=== PATIENT | male | born 1970 | race Caucasian/White ===

== ENCOUNTER 2016-12-13 12:32 | Inpatient (IN) | payer OTHER ==
[~2016-12-13] VITALS: Ht 167.6 cm; Wt 71.7 kg
[2016-12-13] VITALS (7 sets, daily range): BP systolic 120–152; BP diastolic 75–92; PULSE 60–74; RESP 17–18; Ht 167.6 cm; Wt 71.7 kg
[2016-12-13] MEDS ORDERED: morphine 10 MG INJ IM PRN (13:00)
[2016-12-13] MEDS ORDERED: ONDANSETRON 4 MG INJ IV PRN ×2 (13:00→16:00)
[2016-12-13] MEDS ORDERED: IBUPROFEN 400 MG TAB PO PRN ×2 (13:00→18:00)
[2016-12-13] MEDS ORDERED: morphine 2 MG INJ ONE (13:18)
[2016-12-13] MEDS: MECLIZINE 25 MG TAB PO PRN (14:15)
[2016-12-13] MEDS: IBUPROFEN 400 MG TAB PO PRN (15:45)
[2016-12-13] MEDS ORDERED: morphine 2 MG INJ IV PRN (16:00)
[2016-12-13] MEDS ORDERED: HYDROCODONE/APAP (5/325) TAB PO ONE (16:00)
[2016-12-13] MEDS ORDERED: DOCUSATE SODIUM 100 MG CAP PO PRN (16:00)
[2016-12-13] MEDS ORDERED: NACL 0.9% 3 ML SYG IV SCH (16:00)
[2016-12-13] MEDS ORDERED: GLUCAGON 1 MG INJ IM PRN (16:30)
[2016-12-13] MEDS ORDERED: GLUCOSE GEL 15 GRAM TUBE PO PRN ×2 (16:30)
[2016-12-13] MEDS ORDERED: GLUCOSE GEL 15 GRAM TUBE BUCCAL PRN (16:30)
[2016-12-13] MEDS ORDERED: DEXTROSE 50% 50 ML SYRINGE IV PRN ×2 (16:30)
[2016-12-13 16:39] LABS: CREATINE KINASE 136 IU/L (23-200)
[2016-12-13 16:55] LABS: CK-MB 1.11 ng/ml (0.0-2.4); TROPONIN-I < 0.012 ng/ml (0.00-0.12)
[2016-12-13] MEDS: SOD CHLORIDE 0.45% 1,000 ML IV SCH (17:02)
--- NOTE | 2016-12-13 17:09 | HP ---
DATE OF ADMISSION: 12/13/2016 [employer] MACHINE: Neurology. CHIEF COMPLAINT: Lightheadedness and dizziness. 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 He used to take melatonin 5 mg daily during the day for sleeping, which was not helping h im, so he increased the dose to 10 mg. Yesterday on 12/12/2016, patient started having lightheadedne ss and dizziness and severe vertigo accompanied with nausea and 1 episode of vomiting. The patient was taken to [facility], where he had a CT angiogram of head and neck, which the findings showed no acute infarct, hemorrhage, mass or intra-axial fluid collection, mild bilater al inferior maxillary sinus mucosal thickening, unremarkable CT angiogram of the head. Metallic art ifact and motion artifact obscured the proximal ICA bilaterally but especially on the right which luna s retropharyngeal course and has appearance of proximal mid right ICA narrowing, and followup is sug gested. The patient was treated with lorazepam, meclizine. His urine drug screen was found to be n egative, although his glucose was found to be 347. The patient denies having any history of diabete s mellitus. His family history of diabetes is unknown. The patient's vital signs were found to be temperature 36.4, pulse 58, respirations 20, blood pressure 148/87, oxygen saturation 99%, and secon danish to insurance purposes, the patient has been transferred to [facility] as requ est of the insurance company, and patient is capitated to [facility]. At this sandra e, the patient continues to complain of having lightheadedness, dizziness and headache. He denies h aving any nausea at this time. He denies having any change in visual acuity, diplopia, photophobia. No abdominal pain, no change in the color of stool. No chest pain. No palpitations, edema, ortho pnea. No respiratory distress. No recent travel history. No sick contact. No cough, congestion, nasal discharge. No neck pain, no restricted range of motion in upper or lower extremity, no mening ismus sign. No hair loss or any other discomfort. PAST MEDICAL AND SURGICAL HISTORY: None. MEDICATIONS: Melatonin. SOCIAL HISTORY: He smokes half a pack of cigarettes per day. No alcohol, no illicit drugs. FAMILY HISTORY: Unknown, although as far as he is concerned, his parents were healthy. REVIEW OF SYSTEMS: As above per HPI. Otherwise, 12 review of systems have been found to be negativ e. PHYSICAL EXAMINATION: VITAL SIGNS: Temperature 98.1, pulse 74, respirations 18, blood pressure 133/79, oxygen saturation 97% room air. GENERAL APPEARANCE: The patient is lying in bed comfortably without any distress. He is awake, marina rt, oriented. He is able to answer my questions properly. EYES, EARS, NOSE, THROAT: Conjunctivae, lids are normal. Pupils are normal. Extraocular normal. Hearing grossly normal. Lips, gums are normal. Oral mucosa is mildly dry. NECK: Supple. Trachea is midline. No lymphadenopathy. RESPIRATORY: Effort is normal. Clear to auscultation bilaterally. CARDIOVASCULAR: Normal S1, S2. Regular rhythm and rate. No murmur, no bruits, no edema. Peripher al pulses, radial pulses palpable. Capillary refill is normal. CHEST: Normal expansion of thorax during inspiration. GASTROINTESTINAL: Abdomen soft, nontender, not distended. Bowel sounds are present. No guarding, no rebound. GENITOURINARY: Deferred. MUSCULOSKELETAL: Upper and lower extremities within normal limits. Motor, sensory are intact. LABORATORY WORK AND IMAGING: Sodium 138, potassium 4.6, chloride 98, bicarbonate 26, BUN 15, creati nine 0.81, glucose 348, calcium 9.5, anion gap 14, GFR greater than 60. UDS negative. CTA of the head and neck and CT of the head as above per HPI. ASSESSMENT AND PLAN: 1. Dizziness and vertigo. CT of the head and CTA of the head and neck do not show any acute findin g. This may be secondary to inner ear dysfunction. The patient states that he has been consuming g reat amount of salty food, or this also could be secondary to his new diagnosis of diabetes mellitus versus insomnia. Neurology has been consulted. We will obtain carotid Doppler, follow neurology r ecommendation. PT, OT evaluate and treat. 2. Elevated blood glucose. The patient has been started on Lantus insulin sliding scale, low-carb diet. Follow hemoglobin A1c and treat accordingly. 3. Moderately elevated blood pressure. At this time, blood pressure is better controlled. Will co ntinue to monitor and treat accordingly. 4. For deep venous thrombosis prophylaxis, on sequential compression devices. 5. For gastrointestinal prophylaxis, on Pepcid. 6. Will continue to monitor patient closely. Further recommendations, management and treatment as per clinical course. Dictated By: KELTON RAMIREZ MD PN/NTS Conf#: [id number] DID#: [id number]
[2016-12-13] MEDS: INSULIN ASPART [NOVOLOG] 3 ML PEN SC SCH ×2 (17:58→21:02)
[2016-12-13] MEDS: morphine 2 MG INJ IV PRN (17:59)
[2016-12-13] MEDS ORDERED: IBUPROFEN 400 MG TAB PO SCH (18:00)
--- NOTE | 2016-12-13 19:29 | RADRPT ---
PROCEDURE: US carotid arteries. CLINICAL INDICATION: Dizziness. TECHNIQUE: Multiple sonographic images of the carotid arteries and vertebral arteries were obtaine d utilizing gutierrez scale, duplex, and color-flow imaging. The images were reviewed on a PACS workstati on. COMPARISON: No prior studies are available for comparison. FINDINGS: Evaluation of the right carotid bifurcation region reveals mild atherosclerotic disease. Evaluation of the left carotid bifurcation region reveals mild atherosclerotic disease. There is antegrade flow within the vertebral arteries bilaterally. RIGHT CAROTID MEASUREMENTS: Common Carotid Uoadid36 (cm/sec) Internal Carotid Artery 62 (cm/sec) External Carotid Artery 113 (cm/sec) Vertebral Artery 43 (cm/sec) Internal Carotid/Common Carotid0.7 LEFT CAROTID MEASUREMENTS: Common Carotid Fkboji04 (cm/sec) Internal Carotid Artery 73 (cm/sec) External Carotid Artery 97 (cm/sec) Vertebral Artery 41 (cm/sec) Internal Carotid/Common Carotid1.0 Validated velocity measurements with angiographic measurements. Velocity criteria are extrapolated f rom diameter data as defined by the Society of Radiologists in Ultrasound Consensus Conference. Radi ology 2003; 229;340-346. This study does indirectly reference the measurement of the distal ICA yi meter as the denominator for stenosis measurement. IMPRESSION: 1. Less than 50% stenosis bilaterally in the internal carotid arteries. 2. Normal antegrade flow in the vertebral arteries bilaterally. RPTAT: QQ SRU Consensus Conference Criteria for the Diagnosis of Carotid Artery Stenosis* Degree of Stenosis, % ICA PSV, cm/sec Plaque Estimate, % ICA/CCA PSV Ratio Normal <125 None <2.0 <50 <125 <50 <2.0 50 69 125-230 >50 2.0-4.0 >70 but less than near occlusion >230 >50 <4.0 Near occlusion High, low, or undetectable Visible Variable Total occlusion Undetectable Visible, no detectable lumen Not applicable *Cartoid artery stenosis: gutierrez-scale and Doppler US diagnosis. Society of Radiologists in Ultrasound Consensus Conference. Radiology 2003; 229: 340-346 .Aashish Harris MD, Date Time Electronically viewed and signed by .Aashish Harris MD, on 12/13/2016 19:29 .R/
[2016-12-13] MEDS ORDERED: INSULIN GLARGINE [LANtus] 3 ML PEN SC SCH (20:00)
[2016-12-13] MEDS: FAMOTIDINE 20 MG TAB PO SCH (21:03)
[2016-12-13 22:28] LABS: CREATINE KINASE 135 IU/L (23-200)
[2016-12-13 22:38] LABS: CK-MB 0.84 ng/ml (0.0-2.4)
[2016-12-13 22:46] LABS: TROPONIN-I < 0.012 ng/ml (0.00-0.12)
[2016-12-14] VITALS (10 sets, daily range): BP systolic 131–155; BP diastolic 79–84; PULSE 60–93; RESP 19–20
[2016-12-14] MEDS: ACCU-CHEK XX SCH (02:00)
--- NOTE | 2016-12-14 05:12 | CONS ---
DATE OF ADMISSION: 12/13/2016 DATE OF CONSULTATION: 12/13/2016 NEUROLOGIC CONSULTATION HISTORY OF PRESENT ILLNESS: The patient is a 46-year-old gentleman with no past medical history who yesterday developed severe dizziness and vertigo with nausea and it is still present predominantly with movement. When the patient is still, the vertigo goes away. Vertigo is present for a few aysha fatou and then starts improving. He went to [facility] and because of insurance reasons was transferred here. He had CT angiogram of the head and neck as well as CAT scan of the h ead. 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 Per report, a CAT scan of the head shows no abnormality. According to report, unremarkable CT angio gram of the head, metallic artifact obscuring proximal ICA bilaterally, retropharyngeal course of th e right proximal mid ICA possibly has narrowing. The patient had a carotid ultrasound here which di d not show any hemodynamically significant abnormality. The patient's labs show normal basic metabo lic panel from the outside hospital, negative drug screen, negative alcohol. Hemoglobin 17, hematoc rit 49, platelets 210, and WBC count 8.7. The glucose was increased to 347. The patient was put here on Nicoderm patch, Pepcid, and insulin as well as meclizine 25 p.r.n. q. 6 hours. Overall, his dizziness is slightly better. He has no other abnormality. No weakness or numbness an ywhere in the body. No headaches, no diplopia, dysarthria, or dysphasia. ALLERGIES: NONE. MEDICATIONS: None. SOCIAL HISTORY: Cigarette smoker, half pack per day. No alcohol or drug use. FAMILY HISTORY: Noncontributory. REVIEW OF SYSTEMS: All pertinent positives included in the above history of present illness. PHYSICAL EXAMINATION: VITAL SIGNS: Temperature 98.5, pulse 70, respiratory rate 17, blood pressure 120/75. GENERAL: Not in acute distress, lying in bed. HEENT: Normocephalic, atraumatic head. NECK: No carotid bruits. No thyromegaly. LUNGS: Clear to auscultation bilaterally. CARDIAC: Normal cardiac rhythm and sounds. ABDOMEN: Soft, nontender. EXTREMITIES: No cyanosis, clubbing, or edema. NEUROLOGIC: He is awake, alert, and oriented x3 with fluent speech. Cranial nerve examination show s intact visual macario bilaterally. Pupils reactive from 3 to 2 mm bilaterally. Extraocular moveme nts intact. Mild nonsustained nystagmus left beating with some rotary component was noticed on the left extreme of gaze. When the patient was set up in the bed, nystagmus became more noticeable even on primary gaze, left beating, and worse with left gaze. Symmetrical face. Preserved facial stren gth and sensation. Tongue is in midline. Palate elevates symmetrically. Motor strength examinatio n preserved in all extremities. Normal bulk, tone, and strength. Sensory examination intact to lig ht touch and pain. Deep tendon reflexes 2+ upper extremities and knees, 1+ ankle jerks, downgoing t oes bilaterally. Coordination preserved on [id number] testing. No dysmetria or tremor. Gait was not assessed. I attempted to perform Mckenzie-Hallpike maneuver, but the patient developed severe vertigo, and I stoppe d. IMPRESSION: Acute vertigo, positional. Seemed to be secondary to benign positional vertigo. The p atient was found to have diabetes. Workup including hemoglobin A1c and lipid profile pending. I wi ll still obtain MRI of the brain to exclude any strokes. Continue meclizine around the clock, and i f patient's condition is better, he may benefit from repositioning maneuvers such as Quintero-Rima m aneuver to be done as vestibular exercises at home, maybe 1 or 2 times a day. Thank you very much for this interesting consultation. Dictated By: ALYSA KIM/REI Conf#: [id number] DID#: [id number]
[2016-12-14] MEDS: ACETAMINOPHEN 325 MG TAB PO PRN ×2 (05:46→21:26)
[2016-12-14] MEDS: MECLIZINE 25 MG TAB PO PRN (05:46)
[2016-12-14] MEDS: SOD CHLORIDE 0.45% 1,000 ML IV SCH ×2 (05:48→17:35)
[2016-12-14 08:06] LABS: ADD SCAN DIFF NO
[2016-12-14] MEDS: MECLIZINE 25 MG TAB PO SCH ×3 (08:11→21:26)
[2016-12-14] MEDS: NICOTINE (14 MG/24 HR) PATCH TRANSDERM SCH (08:11)
[2016-12-14] MEDS: FAMOTIDINE 20 MG TAB PO SCH ×2 (08:11→21:26)
[2016-12-14 08:14] LABS: BASOPHILS % 0.2 % (0.0-2.0); EOSINOPHILS # 0.1 10^3/ul (0.0-0.5); EOSINOPHILS % 1.4 % (0.0-7.0); HEMATOCRIT 48.3 % (42.0-52.0); HEMOGLOBIN 16.4 g/dl (14.0-18.0); LYMPHOCYTES # 1.9 10^3/ul (0.8-2.9); LYMPHOCYTES % 29.3 % (15.0-51.0); MEAN CORPUSCULAR HEMOGLOBIN 30.7 pg (29.0-33.0); MEAN CORPUSCULAR VOLUME 90.3 fl (82.0-101.0); MEAN PLATELET VOLUME 9.8 fl (7.4-10.4); MONOCYTE # 0.4 10^3/ul (0.3-0.9); MONOCYTES % 5.5 % (0.0-11.0); NEUTROPHILS % 63.3 % (39.0-77.0); PLATELET COUNT 199 10^3/UL (140-415); RED BLOOD COUNT 5.35 10^6/ul (4.70-6.10); RED CELL DISTRIBUTION WIDTH 12.5 % (11.5-14.5); WHITE BLOOD COUNT 6.3 10^3/ul (4.8-10.8)
[2016-12-14] MEDS: INSULIN ASPART [NOVOLOG] 3 ML PEN SC SCH ×6 (08:14→21:34)
[2016-12-14 08:32] LABS: POTASSIUM 3.8 mmol/L (3.5-5.1)
[2016-12-14 08:34] LABS: CREATININE 0.68 mg/dl (0.61-1.24)
[2016-12-14 08:35] LABS: CALCIUM 8.9 mg/dl (8.4-10.2); CHOL/HDL RATIO 4.4 RATIO; MAGNESIUM 1.9 mg/dl (1.7-2.5)
[2016-12-14 08:59] LABS: THYROID STIMULATING HORMONE 0.533 MIU/L (0.465-4.680)
[2016-12-14] MEDS ORDERED: INFLUENZA VIRUS VACCINE 0.5 ML (DISPENSING) IM* ONE (09:00)
[2016-12-14] MEDS: morphine 2 MG INJ IV PRN ×2 (10:27→15:30)
[2016-12-14] MEDS: HYDROCODONE/APAP (5/325) TAB PO PRN (11:17)
[2016-12-14] MEDS: IBUPROFEN 400 MG TAB PO PRN (12:10)
--- NOTE | 2016-12-14 14:20 | PN ---
Date/Time of Note Date/Time of Note DATE: 12/14/16 TIME: 14:17 Assessment/Plan VTE Prophylaxis VTE Prophylaxis Intervention: SCD's Lines/Catheters IV Catheter Type (from [facility]): Peripheral IV Urinary Cath still in place: No Assessment/Plan Chief Complaint/Hosp Course ASSESSMENT AND PLAN: 1. Dizziness and vertigo. CT of the head and CTA of the head and neck do not show any acute finding. Vertigo may be secondary to inner ear dysfunction. Likely secondary to his new diagnosis of diabetes mellitus versus insomnia. Neurology has been consulted. We will obtain carotid Doppler and MRI of the brain, follow neurology recommendation. PT, OT evaluate and treat. 2. Elevated blood glucose. Continue Lantus insulin and sliding scale, low- carb diet. Hb A1c of 10.9 3. Moderately elevated blood pressure. At this time, blood pressure is better controlled. Will continue to monitor and treat accordingly. 4. For deep venous thrombosis prophylaxis, on sequential compression devices. 5. For gastrointestinal prophylaxis, on Pepcid. Will continue to monitor patient closely. Further recommendations, management and treatment as per clinical course. Problems: Subjective 24 Hr Interval Summary Free Text/Dictation Patient continues to complain of having headache without any visual disturbance No nausea vomiting or diarrhea Continues to have vertigo when he sits up from lying position Tolerating oral intake Exam/Review of Systems Vital Signs Vitals Vital Signs Date Time Temp Pulse Resp B/P Pulse Ox O2 Delivery O2 Flow Rate FiO2 12/14/16 12:12 93 12/14/16 11:12 98.4 19 145/84 96 12/13/16 11:50 Room Air Intake and Output 12/13/16 12/13/16 12/14/16 15:00 23:00 07:00 Intake Total 300 ml 1325 ml Output Total 800 ml Balance 300 ml 525 ml Exam General: The patient is well-developed, Not in acute distress. HEENT: Atraumatic, normocephalic. The pupils are equal and round . Neck: Supple with full range of motion. Chest: Normal expansion of the thorax during inspiration Lungs: Clear to auscultation bilaterally Heart: Normal S1-S2, Regular rhythm and rate. Abdomen: Soft , nontender, nondistended , bowel sounds are present. Extremities: Normal to inspection, no edema no cyanosis Neurologic: Normal mental status,The patient is awake, alert and oriented . Results Result Diagram: 12/14/16 0655 12/14/16 0655 Results 24 hrs Laboratory Tests Test 12/13/16 16:05 12/13/16 17:08 12/13/16 21:00 12/13/16 22:00 Creatine Kinase 136 135 Creatine Kinase Index 0.8 0.6 Creatinine Kinase MB (Mass) 1.11 0.84 Troponin I < 0.012 < 0.012 Bedside Glucose 256 H 253 H Test 12/14/16 01:53 12/14/16 06:55 12/14/16 08:06 12/14/16 11:15 Bedside Glucose 219 243 H 219 White Blood Count 6.3 Red Blood Count 5.35 Hemoglobin 16.4 Hematocrit 48.3 Mean Corpuscular Volume 90.3 Mean Corpuscular Hemoglobin 30.7 Mean Corpuscular Hemoglobin Concent 34.0 Red Cell Distribution Width 12.5 Platelet Count 199 Mean Platelet Volume 9.8 Neutrophils % 63.3 Lymphocytes % 29.3 Monocytes % 5.5 Eosinophils % 1.4 Basophils % 0.2 Nucleated Red Blood Cells % 0.0 Neutrophils # 4.0 Lymphocytes # 1.9 Monocytes # 0.4 Eosinophils # 0.1 Basophils # 0.0 Nucleated Red Blood Cells # 0.0 Sodium Level 137 Potassium Level 3.8 Chloride Level 104 Carbon Dioxide Level 25 Anion Gap 12 Blood Urea Nitrogen 14 Creatinine 0.68 Glucose Level 236 H Hemoglobin A1c 10.1 H Calcium Level 8.9 Magnesium Level 1.9 Triglycerides Level 141 Cholesterol Level 173 LDL Cholesterol, Calculated 106 HDL Cholesterol 39 Cholesterol/HDL Ratio 4.4 Thyroid Stimulating Hormone (TSH) 0.533 Medications Medications Current Medications Ondansetron HCl (Zofran Inj) 4 mg Q6H PRN IV NAUSEA AND/OR VOMITING; Start at 13:00 Morphine Sulfate (morphine) 2 mg Q4H PRN IV PAIN LEVEL 4-7 Last administered on 12/14/16 10:27; Admin Dose 2 MG; Start 12/13/16 at 17:00 Ibuprofen 400 mg 400 mg Q6 PRN PO PAIN LEVEL 4-7 Last administered on 12:10; Admin Dose 400 MG; Start 12/13/16 at 14:30 Sodium Chloride (1/2 NS) 1,000 ml @ 75 mls/hr [id number] IV Last administered on 12/14/16 05:48; Admin Dose 75 MLS/HR; Start 12/13/16 at 15:45 Ondansetron HCl (Zofran Inj) 4 mg Q6H PRN IV NAUSEA AND/OR VOMITING; Start at 16:00 Acetaminophen (Tylenol Tab) 650 mg Q6H PRN PO PAIN LEVEL 1-3 OR FEVER Last administered on 12/14/16 05:46; Admin Dose 650 MG; Start 12/13/16 at 16:00 Acetaminophen/ Hydrocodone Bitart ([place] (5/325)) 1 tab Q6H PRN PO PAIN LEVEL 4 -6 Last administered on 12/14/16 11:17; Admin Dose 1 TAB; Start 12/13/16 at 16: 00 Morphine Sulfate (morphine) 2 mg Q4H PRN IV PAIN LEVEL 7-10; Start 12/13/16 at 16:00 Docusate Sodium (Colace) 100 mg Q12H PRN PO CONSTIPATION; Start 12/13/16 at 16: 00 Famotidine (Pepcid) 20 mg Q12 PO Last administered on 12/14/16 08:11; Admin Dose 20 MG; Start 12/13/16 at 21:00 Diagnostic Test (Pha) (Accu-Chek) 1 ea 02 XX ; Start 12/14/16 at 02:00 Nicotine (Nicoderm 14 Mg/ 24hr) 1 patch DAILY TRANSDERM Last administered on 08:11; Admin Dose 1 PATCH; Start 12/14/16 at 09:00 Miscellaneous Information 1 ea NOTE XX ; Start 12/13/16 at 16:30 Glucose (Glutose) 15 gm Q15M PRN PO DECREASED GLUCOSE; Start 12/13/16 at 16:30 Glucose (Glutose) 22.5 gm Q15M PRN PO DECREASED GLUCOSE; Start 12/13/16 at 16: 30 Dextrose (D50w Syringe) 25 ml Q15M PRN IV DECREASED GLUCOSE; Start 12/13/16 at 16:30 Dextrose (D50w Syringe) 50 ml Q15M PRN IV DECREASED GLUCOSE; Start 12/13/16 at 16:30 Glucagon (Glucagen) 1 mg Q15M PRN IM DECREASED GLUCOSE; Start 12/13/16 at 16:30 Glucose (Glutose) 15 gm Q15M PRN BUCCAL DECREASED GLUCOSE; Start 12/13/16 at 16 :30 Meclizine HCl (Antivert) 25 mg TID PO Last administered on 12/14/16t 12:08; Admin Dose 25 MG; Start 12/14/16 at 09:00 Insulin Glargine (Lantus) 15 unit DAILY@20 SC ; Start 12/14/16 at 20:00 KELTON RAMIREZ MD Dec 14, 2016 14:20
--- NOTE | 2016-12-14 14:48 | RADRPT ---
Echocardiogram Report Patient Name: ZENY VALLE Gender: Male Date: 1970 Study Date: 14-Dec-2016 [employer] Designer: Debbie Andrade RDCS Location: [id number] Ref. Physician: KELTON RAMIREZ Quality: Good Procedures: Transthoracic echocardiogram with complete 2D, M-Mode, and doppler examination. Indications: Dizziness. 2D/M Mode Doppler Measurement Value Normal Ranges Measurement Value Normal Ranges LVIDd 2D 4.5 3.5 - 5.6 cm AV Peak Enrique 1.1 m/sec LVIDs 2D 2.8 2.1 - 4.1 cm AV Peak PG 5.1 mmHg LVPWd 2D 0.8 0.6 - 1.1 cm LVOT Peak Enrique 1.2 m/sec IVSd 2D 1.0 0.6 - 1.1 cm LVOT Peak PG 5.4 mmHg AoR Diam 2D 2.4 2.0 - 3.7 cm MV E Peak Enrique 0.5 m/sec EDV 2D 91.9 cm3 MV A Peak Enrique 0.4 m/sec ESV 2D 22.2 cm3 MV E/A 1.2 LA Dimen 2D 3.5 2.3 - 4.0 cm MV Decel Time 175 msec MV Decel Hart 3 MV E/A 1.2 Findings Left Ventricle: Normal left ventricular systolic function. Normal left ventricular cavity size. Normal left ventricular wall thickness. Ejection fraction is visually estimated at 5560 %. Tissue Doppler/Mitral Doppler indices are within normal limits. Right Ventricle: Normal right ventricular size. Normal right ventricular systolic function. Left Atrium: The left atrium is normal in size. Right Atrium: The right atrium is normal in size. Mitral Valve: Normal appearance and function of the mitral valve with trace physiologic regurgitation. Aortic Valve: Normal appearance of the aortic valve. No significant aortic stenosis or insufficiency. Tricuspid Valve: Normal appearance and function of the tricuspid valve with trace physiologic regurgitation. Pulmonic Valve: Normal pulmonic valve appearance. Pericardium: Normal pericardium with no significant pericardial effusion. Aorta: Normal aortic root. IVC: Normal size and normal respiratory collapse consistent with normal right atrial pressure. Conclusions 1.The left ventricle is normal in size and systolic function. 2.Estimated left ventricular ejection fraction of 55-60%. Electronically Signed By: Juan Soto 14-Dec-2016 14:47:38 -0700 Patient Name: ZENY VALLE Study Date: 14-Dec-[id number]
--- NOTE | 2016-12-14 17:13 | RADRPT ---
PROCEDURE: MRI Brain without contrast. CLINICAL INDICATION: Vertigo, ataxia. TECHNIQUE: An MRI of the brain was performed utilizing the following sequences: Sagittal and axial T1 weighted, axial T2 weighted, axial diffusion weighted with ADC mapping, coronal GRE, and axial F LAIR. COMPARISON: None. FINDINGS: There is area of restricted diffusion involving inferior medial left cerebellar hemisphere and left side of vermis consistent with acute/recent infarct. There are areas of gradient susceptibility bertin fact indicative of hemosiderin/petechial hemorrhages. There is associated T2 and FLAIR hyperintensit y and local mass effect with mild effacement of the left lateral fourth ventricle. There is no midline shift. No extra-axial fluid collections are seen. The ventricles and sulci are m ildly enlarged indicative of volume loss. No abnormal intracranial vascular flow void is noted. The visualized paranasal sinuses demonstrate 1 .1 cm mucous retention cyst in the left maxillary sinus. Otherwise mild scattered mucosal thickenin g. IMPRESSION: 1. 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 Mild associated local mass effect with mild eff acement of the left lateral fourth ventricle. 2. Mild generalized cerebral volume loss. Critical result: A call report was made and above findings were discussed and acknowledged by arlet patel's nurse KELLY Gimenez on 12/14/2016 5:07 PM. RPTAT: HH .Padmini Amaya MD, MD Date Time Electronically viewed and signed by .Padmini Amaya MD, MD on 12/14/2016 17:12 .N/
[2016-12-14] MEDS ORDERED: hydrALAzine 20 MG INJ IV PRN (18:00)
[2016-12-14] MEDS: ATORVASTATIN 80 MG TAB PO SCH ×2 (18:32→21:26)
[2016-12-14] MEDS: ASPIRIN 81 MG TAB PO SCH (18:32)
[2016-12-14] MEDS ORDERED: INSULIN GLARGINE [LANtus] 3 ML PEN SC SCH (20:00)
[2016-12-15] VITALS (11 sets, daily range): BP systolic 128–140; BP diastolic 76–87; PULSE 58–97; RESP 15–20
[2016-12-15] MEDS: ACCU-CHEK XX SCH (02:00)
[2016-12-15] MEDS: morphine 2 MG INJ IV PRN ×2 (05:34→09:44)
[2016-12-15 07:33] LABS: ADD SCAN DIFF NO
[2016-12-15 07:37] LABS: BASOPHILS % 0.3 % (0.0-2.0); EOSINOPHILS # 0.1 10^3/ul (0.0-0.5); EOSINOPHILS % 1.6 % (0.0-7.0); HEMATOCRIT 49.6 % (42.0-52.0); HEMOGLOBIN 16.9 g/dl (14.0-18.0); LYMPHOCYTES # 1.4 10^3/ul (0.8-2.9); LYMPHOCYTES % 21.1 % (15.0-51.0); MEAN CORPUSCULAR HEMOGLOBIN 30.5 pg (29.0-33.0); MEAN CORPUSCULAR HGB CONC 34.1 g/dl (32.0-37.0); MEAN CORPUSCULAR VOLUME 89.4 fl (82.0-101.0); MEAN PLATELET VOLUME 9.8 fl (7.4-10.4); MONOCYTE # 0.4 10^3/ul (0.3-0.9); MONOCYTES % 5.9 % (0.0-11.0); NEUTROPHIL # 4.8 10^3/ul (1.6-7.5); NEUTROPHILS % 70.7 % (39.0-77.0); PLATELET COUNT 213 10^3/UL (140-415); RED BLOOD COUNT 5.55 10^6/ul (4.70-6.10); RED CELL DISTRIBUTION WIDTH 12.2 % (11.5-14.5); WHITE BLOOD COUNT 6.8 10^3/ul (4.8-10.8)
[2016-12-15] MEDS: SOD CHLORIDE 0.45% 1,000 ML IV SCH ×2 (07:45→21:05)
[2016-12-15 07:51] LABS: POTASSIUM 3.5 mmol/L (3.5-5.1)
[2016-12-15 07:54] LABS: CREATININE 0.71 mg/dl (0.61-1.24)
[2016-12-15 07:55] LABS: CALCIUM 9.1 mg/dl (8.4-10.2); MAGNESIUM 1.9 mg/dl (1.7-2.5)
[2016-12-15] MEDS: INSULIN ASPART [NOVOLOG] 3 ML PEN SC SCH ×7 (08:38→21:39)
[2016-12-15] MEDS: MECLIZINE 25 MG TAB PO SCH ×3 (09:25→21:35)
[2016-12-15] MEDS: ASPIRIN 81 MG TAB PO SCH (09:25)
[2016-12-15] MEDS: FAMOTIDINE 20 MG TAB PO SCH ×2 (09:25→21:34)
[2016-12-15] MEDS: NICOTINE (14 MG/24 HR) PATCH TRANSDERM SCH (09:26)
[2016-12-15] MEDS ORDERED: POTASSIUM CHLORIDE (SR) 20 MEQ TAB PO STA (11:27)
--- NOTE | 2016-12-15 11:45 | PN ---
Date/Time of Note Date/Time of Note DATE: 12/15/16 TIME: 11:43 Assessment/Plan VTE Prophylaxis VTE Prophylaxis Intervention: other Lines/Catheters IV C[facility]ter Type (from [facility]): Peripheral IV Urinary Cath still in place: No Assessment/Plan Problems: (1) Tobacco abuse Status: Chronic Comment: Strongly counseled. Patient contracts to work at this as an outpatient. Try to be in contact with his primary care physician to maintain continuity (2) Diabetes mellitus type 2 in nonobese Status: Chronic Comment: Initiate outpatient treatment starting with metformin (3) Acute cerebrovascular accident (CVA) of cerebellum Status: Chronic Comment: His had a left cerebellar CVA due to vascular disease risk factors. He is now on full dose statin therapy were starting low-dose MELO inhibitors we will treat his diabetes aggressively. He will also be on antiplatelet agents. He has had negative carotid Doppler I will get an echocardiogram to make sure there is no source from the heart (which I doubt) Subjective 24 Hr Interval Summary Free Text/Dictation Patient complains of headache reports he is otherwise doing well. Constitutional: no complaints (No fevers chills or sweats) Respiratory: no complaints Cardiovascular: no complaints Gastrointestinal: no complaints Genitourinary: no complaints Exam/Review of Systems Vital Signs Vitals Vital Signs Date Time Temp Pulse Resp B/P Pulse Ox O2 Delivery O2 Flow Rate FiO2 12/15/16 11:01 98.8 76 18 138/87 97 12/13/16 11:50 Room Air Intake and Output 12/14/16 12/14/16 12/15/16 15:00 23:00 07:00 Intake Total 1000 ml 550 ml Output Total 950 ml Balance 1000 ml -400 ml Exam Constitutional: alert Neck: non-tender, supple Respiratory: clear to auscultation, normal air movement Cardiovascular: nl pulses, regular rate and rhythm Gastrointestinal: nl liver, spleen, non-tender, soft Results Result Diagram: 12/15/1633 12/15/16 0633 Results 24 hrs Laboratory Tests Test 12/14/16 17:17 12/14/16 21:29 12/15/16 01:45 12/15/16 06:33 Bedside Glucose 190 222 H 172 White Blood Count 6.8 Red Blood Count 5.55 Hemoglobin 16.9 Hematocrit 49.6 Mean Corpuscular Volume 89.4 Mean Corpuscular Hemoglobin 30.5 Mean Corpuscular Hemoglobin Concent 34.1 Red Cell Distribution Width 12.2 Platelet Count 213 Mean Platelet Volume 9.8 Neutrophils % 70.7 Lymphocytes % 21.1 Monocytes % 5.9 Eosinophils % 1.6 Basophils % 0.3 Nucleated Red Blood Cells % 0.0 Neutrophils # 4.8 Lymphocytes # 1.4 Monocytes # 0.4 Eosinophils # 0.1 Basophils # 0.0 Nucleated Red Blood Cells # 0.0 Sodium Level 140 Potassium Level 3.5 Chloride Level 104 Carbon Dioxide Level 24 Anion Gap 16 Blood Urea Nitrogen 18 Creatinine 0.71 Glucose Level 209 Calcium Level 9.1 Magnesium Level 1.9 Test 12/15/16 08:24 12/15/16 11:37 Bedside Glucose 181 149 Medications Medications Current Medications Morphine Sulfate (morphine) 2 mg Q4H PRN IV PAIN LEVEL 4-7 Last administered on 12/15/16 09:44; Admin Dose 2 MG; Start 12/13/16 at 17:00 Ibuprofen 400 mg 400 mg Q6 PRN PO PAIN LEVEL 4-7 Last administered on 12:10; Admin Dose 400 MG; Start 12/13/16 at 14:30 Sodium Chloride (1/2 NS) 1,000 ml @ 75 mls/hr [id number] IV Last administered on 12/14/16 05:48; Admin Dose 75 MLS/HR; Start 12/13/16 at 15:45 Ondansetron HCl (Zofran Inj) 4 mg Q6H PRN IV NAUSEA AND/OR VOMITING; Start at 16:00 Acetaminophen (Tylenol Tab) 650 mg Q6H PRN PO PAIN LEVEL 1-3 OR FEVER Last administered on 12/14/16 21:26; Admin Dose 650 MG; Start 12/13/16 at 16:00 Acetaminophen/ Hydrocodone Bitart ([place] (5/325)) 1 tab Q6H PRN PO PAIN LEVEL 4 -6 Last administered on 12/14/16 11:17; Admin Dose 1 TAB; Start 12/13/16 at 16: 00 Morphine Sulfate (morphine) 2 mg Q4H PRN IV PAIN LEVEL 7-10; Start 12/13/16 at 16:00 Docusate Sodium (Colace) 100 mg Q12H PRN PO CONSTIPATION; Start 12/13/16 at 16: 00 Famotidine (Pepcid) 20 mg Q12 PO Last administered on 12/15/16 09:25; Admin Dose 20 MG; Start 12/13/16 at 21:00 Diagnostic Test (Pha) (Accu-Chek) 1 ea 02 XX ; Start 12/14/16 at 02:00 Nicotine (Nicoderm 14 Mg/ 24hr) 1 patch DAILY TRANSDERM Last administered on 09:26; Admin Dose 1 PATCH; Start 12/14/16 at 09:00 Miscellaneous Information 1 ea NOTE XX ; Start 12/13/16 at 16:30 Glucose (Glutose) 15 gm Q15M PRN PO DECREASED GLUCOSE; Start 12/13/16 at 16:30 Glucose (Glutose) 22.5 gm Q15M PRN PO DECREASED GLUCOSE; Start 12/13/16 at 16: 30 Dextrose (D50w Syringe) 25 ml Q15M PRN IV DECREASED GLUCOSE; Start 12/13/16 at 16:30 Dextrose (D50w Syringe) 50 ml Q15M PRN IV DECREASED GLUCOSE; Start 12/13/16 at 16:30 Glucagon (Glucagen) 1 mg Q15M PRN IM DECREASED GLUCOSE; Start 12/13/16 at 16:30 Glucose (Glutose) 15 gm Q15M PRN BUCCAL DECREASED GLUCOSE; Start 12/13/16 at 16 :30 Meclizine HCl (Antivert) 25 mg TID PO Last administered on 12/15/16 09:25; Admin Dose 25 MG; Start 12/14/16 at 09:00 Atorvastatin Calcium (Lipitor) 80 mg HS PO Last administered on 12/14/16 18:32 ; Admin Dose 80 MG; Start 12/14/16 at 17:53 Aspirin (Aspirin) 162 mg DAILY PO Last administered on 12/15/16 09:25; Admin Dose 162 MG; Start 12/14/16 at 18:00 Hydralazine HCl (Apresoline) 10 mg Q6H PRN IV ELEVATED BLOOD PRESSURE; Start at 18:00 Insulin Glargine (Lantus) 10 unit DAILY@20 SC ; Start 12/15/16 at 20:00 MARCUS GONZALEZ MD Dec 15, 2016 11:45
[2016-12-15] MEDS: LISINOPRIL 10 MG TAB PO SCH (12:38)
[2016-12-15] MEDS: HYDROCODONE/APAP (5/325) TAB PO PRN ×2 (12:39→18:26)
[2016-12-15] MEDS: metFORMIN 500 MG TAB PO SCH ×2 (12:40→18:06)
--- NOTE | 2016-12-15 14:03 | CONS ---
Date/Time of Note Date/Time of Note DATE: 12/15/16 TIME: 13:57 Consult Date/Type/Reason Admit Date/Time Dec 13, 2016 at 12:32 Initial Consult Date Type of Consultation: neurology Subjective no acute events. Still dizzy, unsteady. Occasional LOVE Objective Vital Signs Date Time Temp Pulse Resp B/P Pulse Ox O2 Delivery O2 Flow Rate FiO2 12/15/16 12:16 88 12/15/16 11:01 98.8 18 138/87 97 12/13/16 11:50 Room Air Intake and Output 12/14/16 12/14/16 12/15/16 14:59 22:59 06:59 Intake Total 1000 ml 550 ml Output Total 950 ml Balance 1000 ml -400 ml Results/Medications Result Diagram: 12/15/16 0633 12/15/1633 Results 24 hrs Laboratory Tests Test 12/14/16 17:17 12/14/16 21:29 12/15/16 01:45 12/15/16 06:33 Bedside Glucose 190 222 H 172 White Blood Count 6.8 Red Blood Count 5.55 Hemoglobin 16.9 Hematocrit 49.6 Mean Corpuscular Volume 89.4 Mean Corpuscular Hemoglobin 30.5 Mean Corpuscular Hemoglobin Concent 34.1 Red Cell Distribution Width 12.2 Platelet Count 213 Mean Platelet Volume 9.8 Neutrophils % 70.7 Lymphocytes % 21.1 Monocytes % 5.9 Eosinophils % 1.6 Basophils % 0.3 Nucleated Red Blood Cells % 0.0 Neutrophils # 4.8 Lymphocytes # 1.4 Monocytes # 0.4 Eosinophils # 0.1 Basophils # 0.0 Nucleated Red Blood Cells # 0.0 Sodium Level 140 Potassium Level 3.5 Chloride Level 104 Carbon Dioxide Level 24 Anion Gap 16 Blood Urea Nitrogen 18 Creatinine 0.71 Glucose Level 209 Calcium Level 9.1 Magnesium Level 1.9 Hepatitis B Surface Antigen NEGATIVE Hepatitis C Antibody Pending Test 12/15/16 08:24 12/15/16 11:37 Bedside Glucose 181 149 Medications Current Medications Morphine Sulfate (morphine) 2 mg Q4H PRN IV PAIN LEVEL 4-7 Last administered on 12/15/16 09:44; Admin Dose 2 MG; Start 12/13/16 at 17:00 Ibuprofen 400 mg 400 mg Q6 PRN PO PAIN LEVEL 4-7 Last administered on 12:10; Admin Dose 400 MG; Start 12/13/16 at 14:30 Sodium Chloride (1/2 NS) 1,000 ml @ 75 mls/hr [id number] IV Last administered on 12/14/16 05:48; Admin Dose 75 MLS/HR; Start 12/13/16 at 15:45 Ondansetron HCl (Zofran Inj) 4 mg Q6H PRN IV NAUSEA AND/OR VOMITING; Start at 16:00 Acetaminophen (Tylenol Tab) 650 mg Q6H PRN PO PAIN LEVEL 1-3 OR FEVER Last administered on 12/14/16 21:26; Admin Dose 650 MG; Start 12/13/16 at 16:00 Acetaminophen/ Hydrocodone Bitart ([place] (5/325)) 1 tab Q6H PRN PO PAIN LEVEL 4 -6 Last administered on 12/15/16 12:39; Admin Dose 1 TAB; Start 12/13/16 at 16: 00 Morphine Sulfate (morphine) 2 mg Q4H PRN IV PAIN LEVEL 7-10; Start 12/13/16 at 16:00 Docusate Sodium (Colace) 100 mg Q12H PRN PO CONSTIPATION; Start 12/13/16 at 16: 00 Famotidine (Pepcid) 20 mg Q12 PO Last administered on 12/15/16 09:25; Admin Dose 20 MG; Start 12/13/16 at 21:00 Diagnostic Test (Pha) (Accu-Chek) 1 ea 02 XX ; Start 12/14/16 at 02:00 Nicotine (Nicoderm 14 Mg/ 24hr) 1 patch DAILY TRANSDERM Last administered on 09:26; Admin Dose 1 PATCH; Start 12/14/16 at 09:00 Miscellaneous Information 1 ea NOTE XX ; Start 12/13/16 at 16:30 Glucose (Glutose) 15 gm Q15M PRN PO DECREASED GLUCOSE; Start 12/13/16 at 16:30 Glucose (Glutose) 22.5 gm Q15M PRN PO DECREASED GLUCOSE; Start 12/13/16 at 16: 30 Dextrose (D50w Syringe) 25 ml Q15M PRN IV DECREASED GLUCOSE; Start 12/13/16 at 16:30 Dextrose (D50w Syringe) 50 ml Q15M PRN IV DECREASED GLUCOSE; Start 12/13/16 at 16:30 Glucagon (Glucagen) 1 mg Q15M PRN IM DECREASED GLUCOSE; Start 12/13/16 at 16:30 Glucose (Glutose) 15 gm Q15M PRN BUCCAL DECREASED GLUCOSE; Start 12/13/16 at 16 :30 Meclizine HCl (Antivert) 25 mg TID PO Last administered on 12/15/16 12:39; Admin Dose 25 MG; Start 12/14/16 at 09:00 Atorvastatin Calcium (Lipitor) 80 mg HS PO Last administered on 12/14/16 18:32 ; Admin Dose 80 MG; Start 12/14/16 at 17:53 Hydralazine HCl (Apresoline) 10 mg Q6H PRN IV ELEVATED BLOOD PRESSURE; Start at 18:00 Insulin Glargine (Lantus) 10 unit DAILY@20 SC ; Start 12/15/16 at 20:00 Lisinopril (Zestril) 10 mg DAILY PO Last administered on 12/15/16 12:38; Admin Dose 10 MG; Start 12/15/16 at 12:00 Aspirin (Aspirin) 81 mg DAILY PO ; Start 12/16/16 at 09:00 Assessment/Plan Chief Complaint/Hosp Course PHYSICAL EXAMINATION: GENERAL: Not in acute distress, lying in bed. HEENT: Normocephalic, atraumatic head. NECK: No carotid bruits. No thyromegaly. LUNGS: Clear to auscultation bilaterally. CARDIAC: Normal cardiac rhythm and sounds. ABDOMEN: Soft, nontender. EXTREMITIES: No cyanosis, clubbing, or edema. NEUROLOGIC: He is awake, alert, and oriented x3 with fluent speech. Cranial nerve examination shows intact visual macario bilaterally. Pupils reactive from 3 to 2 mm bilaterally. Extraocular movements intact. No nystagmus. Symmetrical face. Preserved facial strength and sensation. Tongue is in midline. Palate elevates symmetrically. Motor strength examination preserved in all extremities. Normal bulk, tone, and strength. Sensory examination intact to light touch and pain. Deep tendon reflexes 2+ upper extremities and knees, 1+ ankle jerks, downgoing toes bilaterally. Coordination preserved on [id number] testing. No dysmetria or tremor. Gait was not assessed. A/P: Acute ischemic CVA, left cerebellar on MRI, with mild mass effect and minimal petechiae. Newly diagnosed DM. Smoker Keep normotensive, euglycemic, continue ASA 81, statin. Cont PT, consider rehab eval. Symptomatic pain tx Problems: ALYSA ISLAS MD Dec 15, 2016 14:03
[2016-12-15] MEDS ORDERED: INSULIN GLARGINE [LANtus] 3 ML PEN SC SCH (20:00)
[2016-12-15] MEDS: ATORVASTATIN 80 MG TAB PO SCH (21:35)
[2016-12-15] MEDS: IBUPROFEN 400 MG TAB PO PRN (21:42)
[2016-12-15] MEDS: ZOLPIDEM 5 MG TAB PO PRN (22:48)
[2016-12-16] VITALS (13 sets, daily range): BP systolic 107–135; BP diastolic 62–82; PULSE 72–96; RESP 16–20
[2016-12-16] MEDS: ACCU-CHEK XX SCH (02:52)
[2016-12-16] MEDS: HYDROCODONE/APAP (5/325) TAB PO PRN (05:58)
[2016-12-16 06:37] LABS: ADD SCAN DIFF NO
[2016-12-16 06:47] LABS: BASOPHILS % 0.3 % (0.0-2.0); EOSINOPHILS # 0.2 10^3/ul (0.0-0.5); EOSINOPHILS % 2.2 % (0.0-7.0); HEMATOCRIT 52.1 % (42.0-52.0); HEMOGLOBIN 17.8 g/dl (14.0-18.0); LYMPHOCYTES # 2.3 10^3/ul (0.8-2.9); LYMPHOCYTES % 29.1 % (15.0-51.0); MEAN CORPUSCULAR HEMOGLOBIN 30.6 pg (29.0-33.0); MEAN CORPUSCULAR HGB CONC 34.2 g/dl (32.0-37.0); MEAN CORPUSCULAR VOLUME 89.5 fl (82.0-101.0); MEAN PLATELET VOLUME 9.5 fl (7.4-10.4); MONOCYTE # 0.6 10^3/ul (0.3-0.9); MONOCYTES % 7.8 % (0.0-11.0); NEUTROPHIL # 4.7 10^3/ul (1.6-7.5); NEUTROPHILS % 60.1 % (39.0-77.0); PLATELET COUNT 206 10^3/UL (140-415); RED BLOOD COUNT 5.82 10^6/ul (4.70-6.10); RED CELL DISTRIBUTION WIDTH 12.3 % (11.5-14.5); WHITE BLOOD COUNT 7.7 10^3/ul (4.8-10.8)
[2016-12-16 07:04] LABS: POTASSIUM 3.9 mmol/L (3.5-5.1)
[2016-12-16 07:07] LABS: CALCIUM 9.6 mg/dl (8.4-10.2); CREATININE 0.79 mg/dl (0.61-1.24)
[2016-12-16] MEDS: FAMOTIDINE 20 MG TAB PO SCH ×2 (08:27→21:31)
[2016-12-16] MEDS: ASPIRIN 81 MG TAB PO SCH (08:27)
[2016-12-16] MEDS: LISINOPRIL 10 MG TAB PO SCH (08:28)
[2016-12-16] MEDS: NICOTINE (14 MG/24 HR) PATCH TRANSDERM SCH (08:28)
[2016-12-16] MEDS: metFORMIN 500 MG TAB PO SCH ×2 (08:28→17:40)
[2016-12-16] MEDS: INSULIN ASPART [NOVOLOG] 3 ML PEN SC SCH ×5 (08:34→21:00)
[2016-12-16] MEDS: MECLIZINE 25 MG TAB PO SCH ×3 (08:49→21:31)
[2016-12-16] MEDS: morphine 2 MG INJ IV PRN (08:49)
[2016-12-16] MEDS: SOD CHLORIDE 0.45% 1,000 ML IV SCH ×2 (10:06→23:27)
--- NOTE | 2016-12-16 10:27 | PN ---
Date/Time of Note Date/Time of Note DATE: 12/16/16 TIME: 10:25 Assessment/Plan VTE Prophylaxis VTE Prophylaxis Intervention: other Lines/Catheters [facility] Type [facility] [place] Urinary Cath still in place: No Assessment/Plan Problems: (1) Acute cerebrovascular accident (CVA) of cerebellum Status: Chronic Comment: As per neurology consult will try and get physical therapy more involved. They have been on the case since the . Ultimately he will need some type of outpatient rehabilitation which once we have got that set up he can be then be discharged (2) Diabetes mellitus type 2 in nonobese Status: Chronic Comment: Convert to outpatient style protocol. Patient is not interested in doing injections at home (3) Tobacco abuse Status: Chronic Comment: Re-counseled Subjective 24 Hr Interval Summary Free Text/Dictation Patient reports that he has issues of stability with walking and has to be very careful. He also wants to know when he can go back to work. Constitutional: no complaints (No fever chills or sweats) Respiratory: no complaints Cardiovascular: no complaints Gastrointestinal: no complaints Genitourinary: no complaints Neurologic: other (Unsteady and some dizziness), No headache Exam/Review of Systems Vital Signs Vitals Vital Signs Date Time Temp Pulse Resp B/P Pulse Ox O2 Delivery O2 Flow Rate FiO2 12/16/16 08:35 94 12/16/16 07:14 98.0 16 120/72 98 12/13/16 11:50 Room Air Intake and Output 12/15/16 12/15/16 12/16/16 15:00 23:00 07:00 Intake Total 850 ml 450 ml Output Total 700 ml Balance 150 ml 450 ml Exam Constitutional: alert, oriented Neck: non-tender, supple Respiratory: clear to auscultation, normal air movement Cardiovascular: nl pulses, regular rate and rhythm Neurological: other (See neuro consult) Results Result Diagram: 12/16/16 0543 12/16/16 0543 Results 24 hrs Laboratory Tests Test 12/15/16 11:37 12/15/16 18:04 12/15/16 20:51 12/16/16 02:44 Bedside Glucose 149 118 213 125 Test 12/16/16 05:43 12/16/16 07:49 White Blood Count 7.7 Red Blood Count 5.82 Hemoglobin 17.8 Hematocrit 52.1 H Mean Corpuscular Volume 89.5 Mean Corpuscular Hemoglobin 30.6 Mean Corpuscular Hemoglobin Concent 34.2 Red Cell Distribution Width 12.3 Platelet Count 206 Mean Platelet Volume 9.5 Neutrophils % 60.1 Lymphocytes % 29.1 Monocytes % 7.8 Eosinophils % 2.2 Basophils % 0.3 Nucleated Red Blood Cells % 0.0 Neutrophils # 4.7 Lymphocytes # 2.3 Monocytes # 0.6 Eosinophils # 0.2 Basophils # 0.0 Nucleated Red Blood Cells # 0.0 Sodium Level 140 Potassium Level 3.9 Chloride Level 103 Carbon Dioxide Level 24 Anion Gap 17 H Blood Urea Nitrogen 22 H Creatinine 0.79 Glucose Level 153 Calcium Level 9.6 Bedside Glucose 197 Medications Medications Current Medications Morphine Sulfate (morphine) 2 mg Q4H PRN IV PAIN LEVEL 4-7 Last administered on 12/16/16 08:49; Admin Dose 2 MG; Start 12/13/16 at 17:00 Ibuprofen 400 mg 400 mg Q6 PRN PO PAIN LEVEL 4-7 Last administered on 12/15/16 21:42; Admin Dose 400 MG; Start 12/13/16 at 14:30 Sodium Chloride (1/2 NS) 1,000 ml @ 75 mls/hr [id number] IV Last administered on 12/14/16 05:48; Admin Dose 75 MLS/HR; Start 12/13/16 at 15:45 Ondansetron HCl (Zofran Inj) 4 mg Q6H PRN IV NAUSEA AND/OR VOMITING; Start at 16:00 Acetaminophen (Tylenol Tab) 650 mg Q6H PRN PO PAIN LEVEL 1-3 OR FEVER Last administered on 12/14/16 21:26; Admin Dose 650 MG; Start 12/13/16 at 16:00 Acetaminophen/ Hydrocodone Bitart ([place] (5/325)) 1 tab Q6H PRN PO PAIN LEVEL 4 -6 Last administered on 12/16/16 05:58; Admin Dose 1 TAB; Start 12/13/16 at 16: 00 Morphine Sulfate (morphine) 2 mg Q4H PRN IV PAIN LEVEL 7-10; Start 12/13/16 at 16:00 Docusate Sodium (Colace) 100 mg Q12H PRN PO CONSTIPATION; Start 12/13/16 at 16: 00 Famotidine (Pepcid) 20 mg Q12 PO Last administered on 12/16/16 08:27; Admin Dose 20 MG; Start 12/13/16 at 21:00 Diagnostic Test (Pha) (Accu-Chek) 1 ea 02 XX Last administered on 12/16/16 02: 52; Admin Dose 1 EA; Start 12/14/16 at 02:00 Nicotine (Nicoderm 14 Mg/ 24hr) 1 patch DAILY TRANSDERM Last administered on 08:28; Admin Dose 1 PATCH; Start 12/14/16 at 09:00 Miscellaneous Information 1 ea NOTE XX ; Start 12/13/16 at 16:30 Glucose (Glutose) 15 gm Q15M PRN PO DECREASED GLUCOSE; Start 12/13/16 at 16:30 Glucose (Glutose) 22.5 gm Q15M PRN PO DECREASED GLUCOSE; Start 12/13/16 at 16: 30 Dextrose (D50w Syringe) 25 ml Q15M PRN IV DECREASED GLUCOSE; Start 12/13/16 at 16:30 Dextrose (D50w Syringe) 50 ml Q15M PRN IV DECREASED GLUCOSE; Start 12/13/16 at 16:30 Glucagon (Glucagen) 1 mg Q15M PRN IM DECREASED GLUCOSE; Start 12/13/16 at 16:30 Glucose (Glutose) 15 gm Q15M PRN BUCCAL DECREASED GLUCOSE; Start 12/13/16 at 16 :30 Meclizine HCl (Antivert) 25 mg TID PO Last administered on 12/16/16 08:49; Admin Dose 25 MG; Start 12/14/16 at 09:00 Atorvastatin Calcium (Lipitor) 80 mg HS PO Last administered on 12/15/16 21:35 ; Admin Dose 80 MG; Start 12/14/16 at 17:53 Hydralazine HCl (Apresoline) 10 mg Q6H PRN IV ELEVATED BLOOD PRESSURE; Start at 18:00 Insulin Glargine (Lantus) 10 unit DAILY@20 SC Last administered on 12/15/16 21: 40; Admin Dose 10 UNIT; Start 12/15/16 at 20:00 Lisinopril (Zestril) 10 mg DAILY PO Last administered on 12/16/16 08:28; Admin Dose 10 MG; Start 12/15/16 at 12:00 Aspirin (Aspirin) 81 mg DAILY PO Last administered on 12/16/16 08:27; Admin Dose 81 MG; Start 12/16/16 at 09:00 Zolpidem Tartrate (Ambien) 10 mg HS PRN PO INSOMNIA Last administered on 22:48; Admin Dose 10 MG; Start 12/15/16 at 23:00 Linagliptin (Tradjenta) 5 mg DAILY PO ; Start 12/16/16 at 10:30 MARCUS GONZALEZ MD Dec 16, 2016 10:27
[2016-12-16] MEDS: REPAGLINIDE 1 MG TAB PO SCH ×2 (11:14→17:40)
[2016-12-16] MEDS: IBUPROFEN 400 MG TAB PO PRN ×2 (11:14→20:16)
[2016-12-16] MEDS: LINAGLIPTIN 5 MG TABLET PO SCH (12:34)
--- NOTE | 2016-12-16 16:48 | CONS ---
Date/Time of Note Date/Time of Note DATE: 12/16/16 TIME: 16:46 Consult Date/Type/Reason Admit Date/Time Dec 13, 2016 at 12:32 Type of Consultation: neurology Subjective no acute events, occasional headache, mild Objective Vital Signs Date Time Temp Pulse Resp B/P Pulse Ox O2 Delivery O2 Flow Rate FiO2 12/16/16 16:14 96 12/16/16 15:05 97.7 18 135/67 99 12/13/16 11:50 Room Air Intake and Output 12/15/16 12/15/16 12/16/16 15:00 23:00 07:00 Intake Total 850 ml 450 ml Output Total 700 ml Balance 150 ml 450 ml Results/Medications Result Diagram: 12/16/16 0543 12/16/16 0543 Results 24 hrs Laboratory Tests Test 12/15/16 18:04 12/15/16 20:51 12/16/16 02:44 12/16/16 05:43 Bedside Glucose 118 213 125 White Blood Count 7.7 Red Blood Count 5.82 Hemoglobin 17.8 Hematocrit 52.1 H Mean Corpuscular Volume 89.5 Mean Corpuscular Hemoglobin 30.6 Mean Corpuscular Hemoglobin Concent 34.2 Red Cell Distribution Width 12.3 Platelet Count 206 Mean Platelet Volume 9.5 Neutrophils % 60.1 Lymphocytes % 29.1 Monocytes % 7.8 Eosinophils % 2.2 Basophils % 0.3 Nucleated Red Blood Cells % 0.0 Neutrophils # 4.7 Lymphocytes # 2.3 Monocytes # 0.6 Eosinophils # 0.2 Basophils # 0.0 Nucleated Red Blood Cells # 0.0 Sodium Level 140 Potassium Level 3.9 Chloride Level 103 Carbon Dioxide Level 24 Anion Gap 17 H Blood Urea Nitrogen 22 H Creatinine 0.79 Glucose Level 153 Calcium Level 9.6 Test 12/16/16 07:49 12/16/16 12:00 Bedside Glucose 197 146 Medications Current Medications Morphine Sulfate (morphine) 2 mg Q4H PRN IV PAIN LEVEL 4-7 Last administered on 12/16/16 08:49; Admin Dose 2 MG; Start 12/13/16 at 17:00 Ibuprofen 400 mg 400 mg Q6 PRN PO PAIN LEVEL 4-7 Last administered on 12/16/16 11:14; Admin Dose 400 MG; Start 12/13/16 at 14:30 Sodium Chloride (1/2 NS) 1,000 ml @ 75 mls/hr [id number] IV Last administered on 12/14/16 05:48; Admin Dose 75 MLS/HR; Start 12/13/16 at 15:45 Ondansetron HCl (Zofran Inj) 4 mg Q6H PRN IV NAUSEA AND/OR VOMITING; Start at 16:00 Acetaminophen (Tylenol Tab) 650 mg Q6H PRN PO PAIN LEVEL 1-3 OR FEVER Last administered on 12/14/16 21:26; Admin Dose 650 MG; Start 12/13/16 at 16:00 Acetaminophen/ Hydrocodone Bitart ([place] (5/325)) 1 tab Q6H PRN PO PAIN LEVEL 4 -6 Last administered on 12/16/16 05:58; Admin Dose 1 TAB; Start 12/13/16 at 16: 00 Morphine Sulfate (morphine) 2 mg Q4H PRN IV PAIN LEVEL 7-10; Start 12/13/16 at 16:00 Docusate Sodium (Colace) 100 mg Q12H PRN PO CONSTIPATION; Start 12/13/16 at 16: 00 Famotidine (Pepcid) 20 mg Q12 PO Last administered on 12/16/16 08:27; Admin Dose 20 MG; Start 12/13/16 at 21:00 Diagnostic Test (Pha) (Accu-Chek) 1 ea 02 XX Last administered on 12/16/16 02: 52; Admin Dose 1 EA; Start 12/14/16 at 02:00 Nicotine (Nicoderm 14 Mg/ 24hr) 1 patch DAILY TRANSDERM Last administered on 08:28; Admin Dose 1 PATCH; Start 12/14/16 at 09:00 Miscellaneous Information 1 ea NOTE XX ; Start 12/13/16 at 16:30 Glucose (Glutose) 15 gm Q15M PRN PO DECREASED GLUCOSE; Start 12/13/16 at 16:30 Glucose (Glutose) 22.5 gm Q15M PRN PO DECREASED GLUCOSE; Start 12/13/16 at 16: 30 Dextrose (D50w Syringe) 25 ml Q15M PRN IV DECREASED GLUCOSE; Start 12/13/16 at 16:30 Dextrose (D50w Syringe) 50 ml Q15M PRN IV DECREASED GLUCOSE; Start 12/13/16 at 16:30 Glucagon (Glucagen) 1 mg Q15M PRN IM DECREASED GLUCOSE; Start 12/13/16 at 16:30 Glucose (Glutose) 15 gm Q15M PRN BUCCAL DECREASED GLUCOSE; Start 12/13/16 at 16 :30 Meclizine HCl (Antivert) 25 mg TID PO Last administered on 12/16/16 12:34; Admin Dose 25 MG; Start 12/14/16 at 09:00 Atorvastatin Calcium (Lipitor) 80 mg HS PO Last administered on 12/15/16 21:35 ; Admin Dose 80 MG; Start 12/14/16 at 17:53 Hydralazine HCl (Apresoline) 10 mg Q6H PRN IV ELEVATED BLOOD PRESSURE; Start at 18:00 Lisinopril (Zestril) 10 mg DAILY PO Last administered on 12/16/16 08:28; Admin Dose 10 MG; Start 12/15/16 at 12:00 Aspirin (Aspirin) 81 mg DAILY PO Last administered on 12/16/16 08:27; Admin Dose 81 MG; Start 12/16/16 at 09:00 Zolpidem Tartrate (Ambien) 10 mg HS PRN PO INSOMNIA Last administered on 22:48; Admin Dose 10 MG; Start 12/15/16 at 23:00 Linagliptin (Tradjenta) 5 mg DAILY PO Last administered on 12/16/16 12:34; Admin Dose 5 MG; Start 12/16/16 at 10:30 Assessment/Plan Chief Complaint/Hosp Course PHYSICAL EXAMINATION: GENERAL: Not in acute distress, lying in bed. HEENT: Normocephalic, atraumatic head. NECK: No carotid bruits. No thyromegaly. LUNGS: Clear to auscultation bilaterally. CARDIAC: Normal cardiac rhythm and sounds. ABDOMEN: Soft, nontender. EXTREMITIES: No cyanosis, clubbing, or edema. NEUROLOGIC: He is awake, alert, and oriented x3 with fluent speech. Cranial nerve examination shows intact visual macario bilaterally. Pupils reactive from 3 to 2 mm bilaterally. Extraocular movements intact. No nystagmus. Symmetrical face. Preserved facial strength and sensation. Tongue is in midline. Palate elevates symmetrically. Motor strength examination preserved in all extremities. Normal bulk, tone, and strength. Sensory examination intact to light touch and pain. Deep tendon reflexes 2+ upper extremities and knees, 1+ ankle jerks, downgoing toes bilaterally. Coordination preserved on [id number] testing. No dysmetria or tremor. Gait wide based, unable to tandem. A/P: Acute ischemic CVA, left cerebellar on MRI, with mild mass effect and minimal petechiae. Newly diagnosed DM. Smoker Keep normotensive, euglycemic, continue ASA 81, statin. Cont PT. Symptomatic pain tx Will follow PT recommendations. But seems to be OK for home PT Problems: ALYSA ISLAS MD Dec 16, 2016 16:48
[2016-12-16] MEDS: ATORVASTATIN 80 MG TAB PO SCH (21:30)
[2016-12-16] MEDS: ZOLPIDEM 5 MG TAB PO PRN (21:30)
[2016-12-17] MEDS: ACCU-CHEK XX SCH (02:00)
[2016-12-17 07:53] VITALS: BP 109/74; RESP 20
[2016-12-17] MEDS: REPAGLINIDE 1 MG TAB PO SCH ×3 (07:55→17:46)
[2016-12-17] MEDS: IBUPROFEN 400 MG TAB PO PRN (07:56)
[2016-12-17] MEDS: metFORMIN 500 MG TAB PO SCH ×2 (07:56→17:45)
[2016-12-17] MEDS: INSULIN ASPART [NOVOLOG] 3 ML PEN SC SCH ×4 (07:56→20:45)
[2016-12-17] MEDS: LINAGLIPTIN 5 MG TABLET PO SCH (08:30)
[2016-12-17] MEDS: NICOTINE (14 MG/24 HR) PATCH TRANSDERM SCH (08:30)
[2016-12-17] MEDS: ASPIRIN 81 MG TAB PO SCH (08:30)
[2016-12-17] MEDS: FAMOTIDINE 20 MG TAB PO SCH ×2 (08:31→20:42)
[2016-12-17] MEDS: MECLIZINE 25 MG TAB PO SCH ×3 (08:32→20:43)
[2016-12-17] MEDS: LISINOPRIL 10 MG TAB PO SCH (08:32)
--- NOTE | 2016-12-17 10:54 | PN ---
Date/Time of Note Date/Time of Note DATE: 12/17/16 TIME: 10:53 Assessment/Plan VTE Prophylaxis VTE Prophylaxis Intervention: SCD's Lines/Catheters IV Catheter Type (from Nrs): Saline Lock Urinary Cath still in place: No Assessment/Plan Assessment/Plan (1) Acute cerebrovascular accident (CVA) of cerebellum Status: Chronic Comment: As per neurology consult will try and get physical therapy more involved. They have been on the case since the . Ultimately he will need some type of outpatient rehabilitation which once we have got that set up he can be then be discharged (2) Diabetes mellitus type 2 in nonobese Status: Chronic Comment: Convert to outpatient style protocol. Patient is not interested in doing injections at home (3) Tobacco abuse Status: Chronic Comment: Re-counseled Subjective 24 Hr Interval Summary Free Text/Dictation dizziness improving Exam/Review of Systems Vital Signs Vitals Vital Signs Date Time Temp Pulse Resp B/P Pulse Ox O2 Delivery O2 Flow Rate FiO2 12/17/16 07:53 98.5 92 20 109/74 96 12/13/16 11:50 Room Air Intake and Output 12/16/16 12/16/16 12/17/16 15:00 23:00 07:00 Intake Total 850 ml 240 ml Balance 850 ml 240 ml Exam Constitutional: alert Neck: non-tender, supple Respiratory: clear to auscultation, normal air movement Cardiovascular: nl pulses, regular rate and rhythm Gastrointestinal: nl liver, spleen, non-tender, soft Results Result Diagram: 12/16/16 0543 12/16/16 0543 Results 24 hrs Laboratory Tests Test 12/16/16 12:00 12/16/16 17:38 12/16/16 21:23 12/17/16 07:53 Bedside Glucose 146 113 140 133 Medications Medications Current Medications Morphine Sulfate (morphine) 2 mg Q4H PRN IV PAIN LEVEL 4-7 Last administered on 12/16/16 08:49; Admin Dose 2 MG; Start 12/13/16 at 17:00 Ibuprofen 400 mg 400 mg Q6 PRN PO PAIN LEVEL 4-7 Last administered on 12/17/16 07:56; Admin Dose 400 MG; Start 12/13/16 at 14:30 Sodium Chloride (1/2 NS) 1,000 ml @ 75 mls/hr [id number] IV Last administered on 12/14/16 05:48; Admin Dose 75 MLS/HR; Start 12/13/16 at 15:45 Ondansetron HCl (Zofran Inj) 4 mg Q6H PRN IV NAUSEA AND/OR VOMITING; Start at 16:00 Acetaminophen (Tylenol Tab) 650 mg Q6H PRN PO PAIN LEVEL 1-3 OR FEVER Last administered on 12/14/16 21:26; Admin Dose 650 MG; Start 12/13/16 at 16:00 Acetaminophen/ Hydrocodone Bitart ([place] (5/325)) 1 tab Q6H PRN PO PAIN LEVEL 4 -6 Last administered on 12/16/16 05:58; Admin Dose 1 TAB; Start 12/13/16 at 16: 00 Morphine Sulfate (morphine) 2 mg Q4H PRN IV PAIN LEVEL 7-10; Start 12/13/16 at 16:00 Docusate Sodium (Colace) 100 mg Q12H PRN PO CONSTIPATION; Start 12/13/16 at 16: 00 Famotidine (Pepcid) 20 mg Q12 PO Last administered on 12/17/16 08:31; Admin Dose 20 MG; Start 12/13/16 at 21:00 Diagnostic Test (Pha) (Accu-Chek) 1 ea 02 XX Last administered on 12/16/16 02: 52; Admin Dose 1 EA; Start 12/14/16 at 02:00 Nicotine (Nicoderm 14 Mg/ 24hr) 1 patch DAILY TRANSDERM Last administered on 08:30; Admin Dose 1 PATCH; Start 12/14/16 at 09:00 Miscellaneous Information 1 ea NOTE XX ; Start 12/13/16 at 16:30 Glucose (Glutose) 15 gm Q15M PRN PO DECREASED GLUCOSE; Start 12/13/16 at 16:30 Glucose (Glutose) 22.5 gm Q15M PRN PO DECREASED GLUCOSE; Start 12/13/16 at 16: 30 Dextrose (D50w Syringe) 25 ml Q15M PRN IV DECREASED GLUCOSE; Start 12/13/16 at 16:30 Dextrose (D50w Syringe) 50 ml Q15M PRN IV DECREASED GLUCOSE; Start 12/13/16 at 16:30 Glucagon (Glucagen) 1 mg Q15M PRN IM DECREASED GLUCOSE; Start 12/13/16 at 16:30 Glucose (Glutose) 15 gm Q15M PRN BUCCAL DECREASED GLUCOSE; Start 12/13/16 at 16 :30 Meclizine HCl (Antivert) 25 mg TID PO Last administered on 12/17/16 08:32; Admin Dose 25 MG; Start 12/14/16 at 09:00 Atorvastatin Calcium (Lipitor) 80 mg HS PO Last administered on 12/16/16 21:30 ; Admin Dose 80 MG; Start 12/14/16 at 17:53 Hydralazine HCl (Apresoline) 10 mg Q6H PRN IV ELEVATED BLOOD PRESSURE; Start at 18:00 Lisinopril (Zestril) 10 mg DAILY PO Last administered on 12/17/16 08:32; Admin Dose 10 MG; Start 12/15/16 at 12:00 Aspirin (Aspirin) 81 mg DAILY PO Last administered on 12/17/16 08:30; Admin Dose 81 MG; Start 12/16/16 at 09:00 Zolpidem Tartrate (Ambien) 10 mg HS PRN PO INSOMNIA Last administered on 21:30; Admin Dose 10 MG; Start 12/15/16 at 23:00 Linagliptin (Tradjenta) 5 mg DAILY PO Last administered on 12/17/16 08:30; Admin Dose 5 MG; Start 12/16/16 at 10:30 SHAMIR VACA MD Dec 17, 2016 10:54
--- NOTE | 2016-12-17 11:02 | PDOCDIS ---
Discharge Instructions CONDITION Patient Condition: Good HOME CARE INSTRUCTIONS: Special Diet: CARB CONTROL ACTIVITY: Activity Restrictions: Slowly Increase Activity Rest between Activity Avoid heavy lifting Avoid Heavy Housework FOLLOW UP/APPOINTMENTS Appointments follow up with his Own PMD in 1-2 week after discharge SHAMIR VACA MD Dec 17, 2016 11:02
[2016-12-17] MEDS: SOD CHLORIDE 0.45% 1,000 ML IV SCH (12:12)
[2016-12-17] MEDS: HYDROCODONE/APAP (5/325) TAB PO PRN (13:46)
[2016-12-17] MEDS ORDERED: LORAZEPAM 0.5 MG TAB PO PRN (14:30)
[2016-12-17 19:00] VITALS: BP 127/65; RESP 18
[2016-12-17] MEDS: ATORVASTATIN 80 MG TAB PO SCH (20:42)
[2016-12-17] MEDS: ZOLPIDEM 5 MG TAB PO PRN (22:16)
[2016-12-18] MEDS: ACCU-CHEK XX SCH (02:00)
[2016-12-18] MEDS: SOD CHLORIDE 0.45% 1,000 ML IV SCH ×2 (02:25→15:45)
[2016-12-18 08:14] VITALS: BP 122/77; RESP 18
[2016-12-18] MEDS: MECLIZINE 25 MG TAB PO SCH ×2 (09:22→13:02)
[2016-12-18] MEDS: NICOTINE (14 MG/24 HR) PATCH TRANSDERM SCH (09:22)
[2016-12-18] MEDS: LINAGLIPTIN 5 MG TABLET PO SCH (09:23)
[2016-12-18] MEDS: FAMOTIDINE 20 MG TAB PO SCH (09:23)
[2016-12-18] MEDS: metFORMIN 500 MG TAB PO SCH ×2 (09:23→17:13)
[2016-12-18] MEDS: ASPIRIN 81 MG TAB PO SCH (09:23)
[2016-12-18] MEDS: LISINOPRIL 10 MG TAB PO SCH (09:24)
[2016-12-18] MEDS: REPAGLINIDE 1 MG TAB PO SCH ×3 (09:24→17:12)
[2016-12-18] MEDS: INSULIN ASPART [NOVOLOG] 3 ML PEN SC SCH ×3 (09:39→17:13)
[2016-12-18] MEDS ORDERED: LOPERAMIDE 2 MG CAP PO STA (09:44)
[2016-12-18] MEDS ORDERED: LOPERAMIDE 2 MG CAP PO PRN (10:00)
--- NOTE | 2016-12-18 11:11 | PN ---
Date/Time of Note Date/Time of Note DATE: 12/18/16 TIME: 11:10 Assessment/Plan VTE Prophylaxis VTE Prophylaxis Intervention: SCD's Lines/Catheters IV Catheter Type (from Nrs): Saline Lock Urinary Cath still in place: No Assessment/Plan Assessment/Plan (1) Acute cerebrovascular accident (CVA) of cerebellum Status: Chronic Comment: As per neurology consult will try and get physical therapy more involved. They have been on the case since the . Ultimately he will need some type of outpatient rehabilitation which once we have got that set up he can be then be discharged (2) Diabetes mellitus type 2 in nonobese Status: Chronic Comment: Convert to outpatient style protocol. Patient is not interested in doing injections at home (3) Tobacco abuse Status: Chronic Comment: Re-counseled Subjective 24 Hr Interval Summary Free Text/Dictation doing better, no complaints, no dizziness Exam/Review of Systems Vital Signs Vitals Vital Signs Date Time Temp Pulse Resp B/P Pulse Ox O2 Delivery O2 Flow Rate FiO2 12/18/16 08:14 97.6 100 18 122/77 94 Intake and Output 12/17/16 12/17/16 12/18/16 15:00 23:00 07:00 Intake Total 1560 ml 960 ml Output Total 4 ml Balance 1560 ml 956 ml Results Result Diagram: 12/16/16 0543 12/16/16 0543 Results 24 hrs Laboratory Tests Test 12/17/16 12:11 12/17/16 17:48 12/17/16 20:45 12/18/16 08:07 Bedside Glucose 95 109 132 170 Medications Medications Current Medications Morphine Sulfate (morphine) 2 mg Q4H PRN IV PAIN LEVEL 4-7 Last administered on 12/16/16 08:49; Admin Dose 2 MG; Start 12/13/16 at 17:00 Ibuprofen 400 mg 400 mg Q6 PRN PO PAIN LEVEL 4-7 Last administered on 12/17/16 07:56; Admin Dose 400 MG; Start 12/13/16 at 14:30 Sodium Chloride (1/2 NS) 1,000 ml @ 75 mls/hr [id number] IV Last administered on 12/14/16 05:48; Admin Dose 75 MLS/HR; Start 12/13/16 at 15:45 Ondansetron HCl (Zofran Inj) 4 mg Q6H PRN IV NAUSEA AND/OR VOMITING; Start at 16:00 Acetaminophen (Tylenol Tab) 650 mg Q6H PRN PO PAIN LEVEL 1-3 OR FEVER Last administered on 12/14/16 21:26; Admin Dose 650 MG; Start 12/13/16 at 16:00 Acetaminophen/ Hydrocodone Bitart ([place] (5/325)) 1 tab Q6H PRN PO PAIN LEVEL 4 -6 Last administered on 12/17/16 13:46; Admin Dose 1 TAB; Start 12/13/16 at 16: 00 Morphine Sulfate (morphine) 2 mg Q4H PRN IV PAIN LEVEL 7-10; Start 12/13/16 at 16:00 Docusate Sodium (Colace) 100 mg Q12H PRN PO CONSTIPATION; Start 12/13/16 at 16: 00 Famotidine (Pepcid) 20 mg Q12 PO Last administered on 12/18/16 09:23; Admin Dose 20 MG; Start 12/13/16 at 21:00 Diagnostic Test (Pha) (Accu-Chek) 1 ea 02 XX Last administered on 12/16/16 02: 52; Admin Dose 1 EA; Start 12/14/16 at 02:00 Nicotine (Nicoderm 14 Mg/ 24hr) 1 patch DAILY TRANSDERM Last administered on 09:22; Admin Dose 1 PATCH; Start 12/14/16 at 09:00 Miscellaneous Information 1 ea NOTE XX ; Start 12/13/16 at 16:30 Glucose (Glutose) 15 gm Q15M PRN PO DECREASED GLUCOSE; Start 12/13/16 at 16:30 Glucose (Glutose) 22.5 gm Q15M PRN PO DECREASED GLUCOSE; Start 12/13/16 at 16: 30 Dextrose (D50w Syringe) 25 ml Q15M PRN IV DECREASED GLUCOSE; Start 12/13/16 at 16:30 Dextrose (D50w Syringe) 50 ml Q15M PRN IV DECREASED GLUCOSE; Start 12/13/16 at 16:30 Glucagon (Glucagen) 1 mg Q15M PRN IM DECREASED GLUCOSE; Start 12/13/16 at 16:30 Glucose (Glutose) 15 gm Q15M PRN BUCCAL DECREASED GLUCOSE; Start 12/13/16 at 16 :30 Meclizine HCl (Antivert) 25 mg TID PO Last administered on 12/18/16 09:22; Admin Dose 25 MG; Start 12/14/16 at 09:00 Atorvastatin Calcium (Lipitor) 80 mg HS PO Last administered on 12/17/16 20:42 ; Admin Dose 80 MG; Start 12/14/16 at 17:53 Hydralazine HCl (Apresoline) 10 mg Q6H PRN IV ELEVATED BLOOD PRESSURE; Start at 18:00 Lisinopril (Zestril) 10 mg DAILY PO Last administered on 12/18/16 09:24; Admin Dose 10 MG; Start 12/15/16 at 12:00 Aspirin (Aspirin) 81 mg DAILY PO Last administered on 12/18/16 09:23; Admin Dose 81 MG; Start 12/16/16 at 09:00 Zolpidem Tartrate (Ambien) 10 mg HS PRN PO INSOMNIA Last administered on 22:16; Admin Dose 10 MG; Start 12/15/16 at 23:00 Linagliptin (Tradjenta) 5 mg DAILY PO Last administered on 12/18/16 09:23; Admin Dose 5 MG; Start 12/16/16 at 10:30 Lorazepam (Ativan) 1 mg TID PRN PO ANXIETY Last administered on 12/17/16 20:42 ; Admin Dose 1 MG; Start 12/17/16 at 14:30 Loperamide HCl (Imodium Cap) 2 mg Q4 PRN PO DIARRHEA; Start 12/18/16 at 10:00 SHAMIR VACA MD Dec 18, 2016 11:11
[2016-12-18] MEDS ORDERED: ATOR80TA75 PO (11:15)
[2016-12-18] MEDS ORDERED: REPA1TAB14 PO (11:15)
[2016-12-18] MEDS ORDERED: METF500T PO (11:15)
[2016-12-18] MEDS ORDERED: MECL-77 PO (11:15)
[2016-12-18] MEDS ORDERED: Nicotine (14 Mg/24 Hr) TRANSDERM (11:15)
[2016-12-18] MEDS ORDERED: LINA5TAB PO (11:15)
[2016-12-18] MEDS ORDERED: LISI10TA2 PO (11:15)
[2016-12-18] MEDS ORDERED: ASPI325T32 PO (11:15)
[2016-12-18] MEDS ORDERED: FAMO20TA18 PO (11:15)
[2016-12-18] MEDS: HYDROCODONE/APAP (5/325) TAB PO PRN (13:42)
[2016-12-18] MEDS: ACETAMINOPHEN 325 MG TAB PO PRN (13:43)
--- NOTE | 2016-12-18 23:07 | DS ---
DATE OF ADMISSION: 12/13/2016 DATE OF DISCHARGE: 12/18/2016 FINAL DISCHARGE DIAGNOSES: 1. Acute cerebrovascular accident of cerebellum. 2. Type 2 diabetes mellitus 3. History of smoking. 4. History of hyperlipidemia, not on any medications prior to admission. CONSULTATIONS DONE DURING THIS HOSPITALIZATION: 1. Neurology consult, Dr. Parikh. 2. Endocrine consult, Dr. Perez. PROCEDURES PERFORMED DURING THIS HOSPITALIZATION: None. HOSPITAL COURSE: This is a 46-year-old male with no significant past medical history and not taking any medications for hyperlipidemia, as per the patient. He presented with a complaint of lightheadedness, dizziness started at work. He has been having difficulty sleeping during the day. The patient presented to the [facility] ER. He was hemodynamically stable, but his blood sugar was 347. The patient was taken by paramedics to [facility], had a CT angiogram head and neck, which shows no acute infarct, hemorrhage, mass, or intraaxial collections, mild bilateral inferior maxillary sinus mucosal thickening ,had a negative CT angiogram of the head. The patient was treated with lorazepam, meclizine. His urine drug was negative. His blood sugar was very high, uncontrolled diabetes mellitus. The patient was capitated to the [facility], so he was transferred to the [facility]. The patient had a physical therapy evaluation. Initially he was complaining of dizziness and gait imbalance with the physical therapy, so he was recommended to have a snf placement, but upon having further assessment and the plan, the patient was stable hemodynamically and he was discharged to home with home health. He was given prescriptions for new medication for diabetes mellitus and hyperlipidemia. DISPOSITION: To home. DISCHARGE CONDITION: Stable and improved compared to admission. DISCHARGE ACTIVITIES: As tolerated, slowly resume to the normal baseline activity. DISCHARGE DIET: Low fat, low sodium, ADA 1800 kilocalorie diet. DISCHARGE MEDICATIONS: 1. He is given new prescriptions of aspirin 325 mg p.o. daily. 2. Lipitor 80 mg p.o. at bedtime. 3. Famotidine 20 mg p.o. b.i.d. 4. Linagliptin 5 mg p.o. daily. 5. Lisinopril 10 mg p.o. daily. 6. Meclizine p.r.n. 7. Metformin 1000 mg p.o. b.i.d. 8. Prandin 1 mg before each meal. 9. A nicotine patch for his smoking. DISCHARGE FOLLOWUP AND INSTRUCTIONS: The patient is to follow with his own primary care doctor through his HMO insurance 1 to 2 weeks after discharge. He has been explained about the discharge plan and followup instructions. He understood and verbalized understanding. Dictated By: SHAMIR VACA MD, KP/REI Conf#: [id number] DID#: [id number] CC: ELLEN SHIPLEY MD;*EndCC* MTDD
== END 2016-12-18 17:30 | disposition home health service (06) | DRG 66 ==
LOC: TEL 12:32 → MS2 12-16 22:55
PROVIDERS: ADMIT Internal Medicine; ATTEND Internal Medicine
DX: I63.9 Cerebral infarction, unspecified (principal); E11.65 Type 2 diabetes mellitus with hyperglycemia; E78.5 Hyperlipidemia, unspecified; F17.210 Nicotine dependence, cigarettes, uncomplicated
CPT/HCPCS: 70551; 80048; 80061; 82270; 82550; 82553; 82962; 83036; 83735; 84443; 84484; 85025; 86592; 86803; 87045; 87205; 87340; 90686; 93306; 93880; 97116; 97162; 97165; 97530; J1815; J2270